=== PATIENT | male | born 1990 | race Caucasian/White ===

== ENCOUNTER 2024-12-24 12:03 | Emergency (ER) | payer BC, SELFPAY ==
[2024-12-24 12:04] VITALS: BP 129/93; PULSE 91; RESP 16; TEMP 36.5; O2SAT 97
[2024-12-24 12:05] VITALS: BMI 46.5
[2024-12-24 12:11] VITALS: O2SAT 97
[2024-12-24 13:03] VITALS: PULSE 80; RESP 12
--- NOTE | 2024-12-24 13:03 | RAD_ITS ---
PROCEDURE: CHEST PA AND LATERAL 12/24/2024 REASON FOR EXAM: COUGH, FEVER TECHNIQUE: Procedure Code: RADCXR Modality: DX Procedure: CHEST PA AND LATERAL COMPARISON: None FINDINGS: Hardware: EKG leads are present. Heart: Normal Mediastinum: Normal Lungs: Clear. Bones: The bones are unremarkable. RAD/Chest PA and Lateral IMPRESSION: No acute abnormality. Reading Location: [id number]
[2024-12-24] MEDS: HYDROcodone Bitartrate/Apap 5/325 Tablet PO (13:14)
--- NOTE | 2024-12-24 13:23 | EX.ED.DYSGE1 ---
HPI History of Present Illness Chief Complaint: Back Informant: patient Narrative Narrative: Patient is a 34-year-old male with history of tobacco use, anxiety and asthma presenting with cough, congestion and right lower back pain. Patient states he felt he could not breathe for the past week and started with nasal congestion, sore throat and cough. He is continue to have a cough. The cough is minimally productive. Does report some subjective fevers over the past week. He states that with all of the coughing he thinks he might of pinched something in his right lower back and is having pain that radiates from his right lower back to his mid thigh. He notes that he had an episode of sciatica when he was in his 20s and was bedridden for a couple days. States it was worse than but it feels similar. He states the back pain is worse with movements. He has been taking him NSAIDs as well as Mucinex DM for his symptoms. He states he did have an episode of nausea secondary to his back pain today but otherwise denies any vomiting or diarrhea. Denies any urinary symptoms. Denies any abdominal pain. Came in for further evaluation. [facility] Medical History History of asthma Generalized anxiety disorder Gastrointestinal problem History of drug abuse Home Medications ?Medication ?Instructions ?Recorded ?Last Taken ?Type duloxetine 30 mg capsule,delayed 30 mg PO DAILY #30 caps 03/08/22 Unknown Rx release albuterol sulfate 90 mcg/actuation 1 - 2 puff inhalation Q4H PRN PRN 12/24/24 Unknown Rx aerosol inhaler (Ventolin HFA) Wheezing #1 inh cyclobenzaprine 10 mg tablet 10 mg PO TID PRN Muscle Spasm #20 12/24/24 Unknown Rx TABLETS hydrocodone-acetaminophen 5-325mg 1 tab PO Q8H PRN Pain 3 days #10 12/24/24 Unknown Rx 5mg-325mg TABLETS ondansetron 4 mg disintegrating 4 mg PO Q8H PRN PRN Nausea #10 tabs 12/24/24 Unknown Rx tablet prednisone 20 mg tablet 40 mg (2 x 20 mg) PO DAILY #10 12/24/24 Unknown Rx TABLETS Allergy/AdvReac Type Severity Reaction Status Date / Time Seasonal Allergies: Uncoded Allergy Mild cough Verified 12/24/24 12:19 (environmental) Family History Mother Alcoholism Anxiety Depression Psychiatric care Father Alcoholism Schizo affective schizophrenia Aunt Alcoholism Uncle Alcoholism Grandmother Cancer Colon cancer Surgical History No history of previous surgery Social History Smoking Status: Former smoker alcohol intake: current alcohol intake frequency: a few times a month substance use type: former substance user ROS ROS ED Constitutional Constitutional ED: Reports fever(s) and subjective ENT ENT ED: Reports sore throat and other Details: congestion ; Denies ear pain or rhinorrhea Cardiovascular Cardiovascular: Denies chest pain or palpitations Respiratory/Chest Respiratory/Chest: Reports cough; Denies dyspnea or sputum Gastrointestinal Gastrointestinal: Reports nausea; Denies abdominal pain, diarrhea or vomiting Genitourinary Genitourinary ED: Denies dysuria or hematuria Musculoskeletal Musculoskeletal: Reports back pain; Denies arthralgias or myalgias Integumentary Denies rash Neurologic Neurologic: Denies headache(s), paresthesias or weakness Hematologic/Lymphatic Hematologic/Lymphatic: Denies easy bleeding or easy bruising EXAM Physical Exam Const Vital Signs: 12/24/24 12:04 12/24/24 12:11 12/24/24 13:03 Temperature 97.7 F L Temperature Source Oral Pulse Rate 91 80 Respiratory Rate 16 12 Respiratory Effort Normal Short of Breath Respiratory Depth Normal Respiratory Pattern Tachypnea Normal Blood Pressure 129/93 H Blood Pressure Mean 105 Pulse Ox 97 Oxygen Delivery Method Room Air Room Air 12/24/24 14:03 12/24/24 15:19 Temperature 98.2 F Temperature Source Pulse Rate 84 77 Respiratory Rate 15 18 Respiratory Effort Respiratory Depth Respiratory Pattern Blood Pressure 169/67 H 134/90 H Blood Pressure Mean 101 104 Pulse Ox 100 98 Oxygen Delivery Method Room Air Positive well nourished and well developed General Appearance ED: well developed and NAD HEENT Reports TM's clear and moist mucous membranes Tympanic Membrane ED: Yes TM's clear Eyes PERRL and EOMs intact bilaterally Neck supple and no JVD Chest Wall inspection of chest normal and palpation of chest normal Resp normal respiratory effort Resp Narrative: Scattered expiratory wheezes present. Auscultation: wheezes; Negative for rhonchi or diminished lung sounds Cardio regular rate and regular rhythm GI normal to inspection, nondistended, normoactive bowel sounds and non-tender Back/Spine no CVA tenderness Back/Spine Narrative: There is palpation of the right lower lumbar back and approximate of level of L4/L5. Negative contralateral straight leg test on the left. Increased pain with straight leg test at approximately 45 degrees on the right. Thoracic Spine / Upper Back: Negative for thoracic spinal tenderness Lumbar Spine / Lower Back: Negative for lumbar spinal tenderness Extremity normal to inspection General Extremety ED: Negative for edema or tenderness General Extremity: Negative for edema Neuro oriented x3 Sensorium / Orientation: alert Motor Exam: Negative for general weakness Psych mental status grossly normal Skin no rashes or lesions noted and no wounds MDM MDM MDM Narrative Medical decision making narrative: Patient evaluated for cough, upper respiratory symptoms and now right lower back pain. Does radiate down his leg. Differential includes bronchitis, pneumonia, viral syndrome, lumbar radiculopathy and lumbar strain/spasm. Patient is nontoxic-appearing. He has normal vital signs. Does have wheezing on exam and is given DuoNeb. Given [place] for pain control for his back (was offered different forms of medication including IM versus oral but elects for oral medication). On repeat evaluation after breathing treatment wheezing is resolved. Chest x-ray viewed by myself as well as radiology does not show any acute infiltrate or other acute process. Patient does not have any midline bony tenderness of his back. Pain very much seems muscle skeletal and I do not think he requires any emergent imaging. It is reproducible with movements. He does not have any urinary or bowel symptoms and low suspicion for cauda equina syndrome. I do not think requires an emergent MRI. Patient is able to ambulate in the emergency room. Will be placed on a course of prednisone for his wheezing and also hopefully will help with his back pain and also given a prescription for muscle relaxer and a short course of [place] for breakthrough severe pain. Given as needed nausea medicine just in case. Given prescription for albuterol inhaler. Given return precautions. Given referral for primary care follow-up. Discharged home in stable and improved condition. Ambulate in the emergency room without any hypoxia. Considered viral testing however has had symptoms for more than 3 days and would not be a candidate for antiviral treatment Radiography Diagnostic Testing: Clinical Impression(s) from Imaging Studies Chest X-Ray 12/24/24 13:03 IMPRESSION: No acute abnormality. Reading Location: [facility] Discharge Plan Triage Chief Complaint: Back Other Complaint: Shortness of Breath ED Provider: Jen Carias Dx/Rx/DC Orders Clinical Impression: Bronchitis, Acute lumbar myofascial strain, Acute lumbar radiculopathy Instructions: ED Back Spasm, No Trauma, ED Bronchitis with Wheezing (Adult) Prescriptions: New cyclobenzaprine 10 mg tablet 10 mg PO TID PRN (Reason: Muscle Spasm) Qty: 20 0RF albuterol sulfate [Ventolin HFA] 90 mcg/actuation HFA aerosol inhaler 1 - 2 puff inhalation Q4H PRN PRN (Reason: Wheezing) Qty: 1 0RF prednisone 20 mg tablet 40 mg PO DAILY Qty: 10 0RF hydrocodone-acetaminophen 5-325 mg tablet 1 tab PO Q8H PRN (Reason: Pain) 3 Days Qty: 10 0RF ondansetron 4 mg tablet,disintegrating 4 mg PO Q8H PRN PRN (Reason: Nausea) Qty: 10 0RF No Action duloxetine 30 mg capsule,delayed release(DR/EC) 30 mg PO DAILY Qty: 30 2RF Stand Alone Forms: ED Work / School Excuse Primary Care Provider: Care Physician,No Primary Referrals: Care Physician,No Primary [Primary Care Provider] - Amanda Geiger Yoni, [employer] WORK[employer] HELPER-C [[facility]] - Activity Restrictions/Additional Instructions: Your respiratory symptoms are most consistent with viral syndrome causing bronchitis. Your chest x-ray today does not show pneumonia. Take the steroids which should help with bronchitis as well as the pain in your lower back. It is possible muscle tightness/spasm is putting pressure on the nerves which is causing the pain that goes into your thigh. You been given a prescription for muscle relaxers as well as a pain pill for breakthrough pain. Do not take them both at the same time because they can cause too much sedation. Do not operate heavy machinery or drive with both the muscle relaxer (cyclobenzaprine/Flexeril) as well as the [place] (hydrocodone). You may continue to take your cough and cold medication as well as [id number] ibuprofen. Print Language: Vietnamese Disposition Disposition: Home, Self Care Discharge Date/Time: 12/24/24 15:27
[2024-12-24 14:03] VITALS: BP 169/67; PULSE 84; RESP 15; O2SAT 100
--- NOTE | 2024-12-24 14:15 | CM.ED ---
Social work Reason for referral: no PCP Referral source: case find SW identified patient's lack of PCP and need for resources. SW entered patient's room, introducing self and role at [facility]. Patient was observed sitting up in bed, accepted SW visit, and introduced patient's significant other, Jenny, who was bedside. Patient confirmed lack of PCP and accepted resources of [facility] Provider Directory and [facility] information. No other needs identified at this time by patient or Jenny. Arleth Roman, MACHINE SETTER AND REPAIRER, ADVERTISING EXECUTIVE
[2024-12-24 14:42] VITALS: O2SAT 99
[2024-12-24 15:19] VITALS: BP 134/90; PULSE 77; RESP 18; TEMP 36.8; O2SAT 98
== END 2024-12-24 15:27 | disposition home or self-care (01) ==
PROVIDERS: Emergency Provider Emergency Medicine; Visit Provider Emergency Medicine
DX: J45.909 Unspecified asthma, uncomplicated (principal); Z87.891 Personal history of nicotine dependence; M54.16 Radiculopathy, lumbar region; F41.9 Anxiety disorder, unspecified; S39.012A Strain of muscle, fascia and tendon of lower back, initial encounter; X58.XXXA Exposure to other specified factors, initial encounter
CPT/HCPCS: 71046; 94640; 99283